=== PATIENT | male | born 1965 | race Caucasian/White ===

== ENCOUNTER → 2017-04-17 | Outpatient (CLI) | payer OTHER ==
--- NOTE | 2017-04-17 09:45 | CT ---
EXAMINATION TYPE: CT foot RT wo con DATE OF EXAM: 04/17/2017 COMPARISON: NONE HISTORY: Right foot pain, Displaced intraarticular fracture of right calcaneus CT DLP: 201.80 mGycm Automated exposure control for dose reduction was used. Three-D reconstructed images are created and reviewed. FINDINGS: There is acute comminuted intra-articular fracture through the body of the calcaneus with a large mannie tral fracture fragment seen measuring roughly 3.8 x 2.7 cm on sagittal image 17. There is superior he ight loss noted. Coronal images show 2 prominent oblique fracture line merging towards the superior m idline felt to reflect a Zarate Type 2B fracture. There are 6 mm avulsion type fracture from the medial malleolus age indeterminate. The talus is intact. Small to moderate size inferior calcaneal spur is noted. Mild diffuse subcutaneo us edema is seen. More prominent mild to moderate subcutaneous edema along lateral malleolus is noted . Osseous structures are diffusely demineralized. Midfoot joints are maintained. Mild spurring anterior tibiotalar articulation is present. Ankle mortise symmetry is preserved. IMPRESSION: SUSPECT ZARATE TYPE II B ACUTE COMMINUTED INTRA-ARTICULAR CALCANEAL FRACTURE DETAILED ABOVE.
== END | disposition home or self-care (01) ==
LOC: RADCTMAIN 07:34
PROVIDERS: ATTEND Orthopaedic Surgery
DX: S92.061D Displaced intraarticular fracture of right calcaneus, subsequent encounter for fracture with routine healing (principal); Z87.891 Personal history of nicotine dependence

== ENCOUNTER → 2020-04-21 | Outpatient (CLI) | payer BC ==
--- NOTE | 2020-04-21 14:36 | XR ---
Cervical spine HISTORY: Neck pain Findings the cervical spine No comparisons Patient shows anterior cervical fusion and discectomy change at C5-C7. There is draining of the saundra l cervical lordosis. Spondylosis is present at C4-5. There may be some foraminal encroachment at C5-6 and C6-7 bilaterally, patient is rotated. There are facet arthropathy changes. IMPRESSION: Postop change. Degenerative disc disease.
== END | disposition home or self-care (01) ==
LOC: RADXRYALE 11:10
PROVIDERS: ATTEND Physician Assistant Medical
DX: M50.30 Other cervical disc degeneration, unspecified cervical region (principal); Z98.890 Other specified postprocedural states
CPT/HCPCS: 72050